=== PATIENT | female | born 1975 | race Caucasian/White ===

== ENCOUNTER 2019-05-11 16:16 | Outpatient (RCR) | payer BC, SELFPAY ==
[2019-04-13 18:22] VITALS: BP 122/70; PULSE 73
[2019-04-20 17:55] VITALS: BP 126/74; PULSE 69
[2019-05-11 17:26] VITALS: BP 129/81; PULSE 70
== END 2019-05-29 12:15 | disposition home or self-care (01) ==
LOC: ANHOBOP 16:16
PROVIDERS: Visit Provider Obstetrics & Gynecology
DX: O09.513 Supervision of elderly primigravida, third trimester (principal); O99.113 Other diseases of the blood and blood-forming organs and certain disorders involving the immune mechanism complicating pregnancy, third trimester; Z3A.32 32 weeks gestation of pregnancy
CPT/HCPCS: 59025

== ENCOUNTER 2019-05-22 18:04 | Observation (INO) | payer BC, SELFPAY ==
[2019-05-22 18:26] VITALS: BP 136/79; PULSE 68
[2019-05-22 18:30] VITALS: BP 141/78; PULSE 70
[2019-05-22 18:45] VITALS: BP 145/83; PULSE 68
[2019-05-22 18:52] VITALS: BMI 27.7
--- NOTE | 2019-05-22 18:53 | OBADM ---
This patient, Ronak Martinez, admitted to the OB room Labor/Delivery/Recovery 105 for observation. Patient/family oriented to hospital policies and general routines including ID bracelet, bed and alarms, visiting hours, pain management, procedures, bathroom and other care routines, personal items, smoking policy, room service/diet, and visiting hours. Patient/Family are encouraged to report perceived risks to care and to ask questions if they do not understand what they are told or what they should do.
[2019-05-22 18:56] LABS: Basophils Percent Auto 0.3 % (0.2-1.2); Eosinophils Absolute Auto 0.1 K/mm3 (0-0.3); Eosinophils Percent Auto 0.7 % (0-4.4); Hematocrit 34.8 % (37.0-47.0); Hemoglobin 11.4 g/dL (12.0-15.0); Immature Granulocyte Absolute 0.11 K/mm3 (0.00-0.031); Immature Granulocyte Percent A 1.2 % (0-0.5); Lymphocytes Absolute Auto 1.83 K/mm3 (0.9-3.2); Lymphocytes Percent Auto 20.4 % (18.3-44.2); Mean Corpuscular HGB Conc 32.8 g/dl (32-36); Mean Corpuscular Hemoglobin 30.2 pg (26-34); Mean Corpuscular Volume 92.1 fl (80-100); Mean Platelet Volume 10.2 fl (7.4-10.4); Monocytes Absolute Auto 0.7 K/mm3 (0.1-0.6); Monocytes Percent Auto 7.2 % (2.6-8.5); Neutrophils Absolute Auto 6.3 K/mm3 (1.3-6.7); Neutrophils Percent Auto 70.2 % (45.5-73.1); Platelet Count Result 144 k/mm3 (150-375); Red Blood Count 3.78 M/mm3 (4.2-5.4); Red Cell Distribution Width 14.5 % (11.5-14.5)
[2019-05-22 19:00] VITALS: BP 158/81; PULSE 95
[2019-05-22 19:02] LABS: Add Urine Microscopic? YES; Appearance Urine Cloudy (Clear); Bilirubin Urine Negative (Negative); Blood Urine Negative (Negative); Color Urine Straw (Yellow); Glucose Urine UA Negative (Negative); Ketones Urine 1+ mg/dL (Negative); Leukocyte Esterase Ur Negative LEU/UL (NEGATIVE); Mucus Urine Rare /lpf; Nitrate Urine Negative (Negative); Protein Urine Negative (Negative); RBC Urine 0-2 /hpf (0-2); Specific Grav Ur 1.008 (1.001-1.035); Squamous Epithelial Cell Urine Many /hpf (Few); Urobilinogen Urine Negative mg/dL (<2.0); WBC Urine 0-3 /hpf (0-3)
--- NOTE | 2019-05-22 19:02 | PC.NURSE ---
Patient here for PIH labs and rule out labor. Home meds confirmed and updated in chart.
[2019-05-22 19:06] LABS: Alanine Aminotransferase 21 U/L (4-35); Albumin Level 3.4 g/dL (3.5-5.1); Alkaline Phosphatase 88 U/L (38-126); Aspartate Amino Transferase 23 U/L (14-36); Bilirubin,Total 0.4 mg/dL (0.2-1.3); Blood Urea Nitrogen 4 mg/dL (7-17); Calcium 9.3 mg/dL (8.4-10.2); Carbon Dioxide 23 mmol/L (22-30); Chloride 100 mmol/L (98-107); Creatinine Urine 30.4 mg/dL; Estimated CRCL calculation 162 ml/min; Estimated Glomerular Filt Rate > 60; Glucose 140 mg/dL (65-105); Potassium 3.4 mmol/L (3.4-5.0); Sodium 131 mmol/L (137-145); Total Protein Urine Random 14 mg/dL; Uric Acid 4.8 mg/dL (2.5-7.5)
[2019-05-22 19:15] VITALS: BP 136/82; PULSE 69
--- NOTE | 2019-05-22 20:07 | PC.NURSE ---
Patient educated on signs to look for in regards to Pre-Eclampsia. Return to hospital if experiencing headaches, blurry vision, nausea, vomiting, upper right quadrant pain. Patient educated on 24 hour urine complete and returning to hospital for repeat labs. Unit phone number given in case of questions. Patient verbalizes understanding to all education provided and denies any questions.
--- NOTE | 2019-06-12 19:53 | P.PNOB_ITS ---
OB - Triage/Final Diagnosis Evaluation Laboratory results: Laboratory Tests 05/22/19 05/22/19 05/22/19 18:48 18:48 18:48 WBC 9.0 RBC 3.78 L Hgb 11.4 L Hct 34.8 L MCV 92.1 MCH 30.2 MCHC 32.8 RDW 14.5 Plt Count 144 L MPV 10.2 Immature Gran % (Auto) 1.2 H Neut % (Auto) 70.2 Lymph % (Auto) 20.4 [place] % (Auto) 7.2 Eos % (Auto) 0.7 Baso % (Auto) 0.3 Lymph # (Auto) 1.83 [place] # (Auto) 0.7 H Eos # (Auto) 0.1 Baso # (Auto) 0.0 Abs Immat Gran (auto) 0.11 H Absolute Neuts (auto) 6.3 Absolute Nucleated RBC 0.0 Nucleated RBC % 0.0 Sodium Potassium Chloride Carbon Dioxide BUN Creatinine Estim Creat Clear Calc Estimated GFR Glucose Uric Acid Calcium Total Bilirubin AST ALT Alkaline Phosphatase Total Protein Albumin Urine Color Straw Urine Appearance Cloudy H Urine pH 7.0 Ur Specific [place] 1.008 Urine Protein Negative Urine Glucose (UA) Negative Urine Ketones 1+ H Ur Blood (Man) Negative Urine Nitrate Negative Urine Bilirubin Negative Urine Urobilinogen Negative Ur Leukocyte Esterase Negative Urine RBC 0-2 Urine WBC 0-3 Ur Squamous Epith Cells Many H Urine Mucus Rare U Random Total Protein 14 Urine Creatinine 30.4 05/22/19 18:48 WBC RBC Hgb Hct MCV MCH MCHC RDW Plt Count MPV Immature Gran % (Auto) Neut % (Auto) Lymph % (Auto) [place] % (Auto) Eos % (Auto) Baso % (Auto) Lymph # (Auto) [place] # (Auto) Eos # (Auto) Baso # (Auto) Abs Immat Gran (auto) Absolute Neuts (auto) Absolute Nucleated RBC Nucleated RBC % Sodium 131 L Potassium 3.4 Chloride 100 Carbon Dioxide 23 BUN 4 L Creatinine 0.40 L Estim Creat Clear Calc 162 Estimated GFR > 60 Glucose 140 H Uric Acid 4.8 Calcium 9.3 Total Bilirubin 0.4 AST 23 ALT 21 Alkaline Phosphatase 88 Total Protein 6.0 L Albumin 3.4 L Urine Color Urine Appearance Urine pH Ur Specific [place] Urine Protein Urine Glucose (UA) Urine Ketones Ur Blood (Man) Urine Nitrate Urine Bilirubin Urine Urobilinogen Ur Leukocyte Esterase Urine RBC Urine WBC Ur Squamous Epith Cells Urine Mucus U Random Total Protein Urine Creatinine Final Diagnosis (1) False labor: Code(s): O47.9 - False labor, unspecified Status: Acute
== END 2019-05-22 19:51 | disposition home or self-care (01) ==
PROVIDERS: Advanced Practice Midwife; Admitting Provider Obstetrics & Gynecology; Visit Provider Obstetrics & Gynecology
DX: O47.1 False labor at or after 37 completed weeks of gestation (principal); Z3A.37 37 weeks gestation of pregnancy
CPT/HCPCS: 36415; 80053; 81001; 82570; 84156; 84550; 85025; 87086; G0378; G0379

== ENCOUNTER 2019-05-23 06:30 | Outpatient (CLI) | payer BC, SELFPAY ==
[2019-05-23 06:54] LABS: Hematocrit 32.6 % (37.0-47.0); Hemoglobin 10.9 g/dL (12.0-15.0); Mean Corpuscular HGB Conc 33.4 g/dl (32-36); Mean Corpuscular Hemoglobin 30.6 pg (26-34); Mean Corpuscular Volume 91.6 fl (80-100); Platelet Count Result 133 k/mm3 (150-375); Red Blood Count 3.56 M/mm3 (4.2-5.4); Red Cell Distribution Width 14.3 % (11.5-14.5); White Blood Count 7.5 K/mm3 (4.5-10.0)
[2019-05-23 07:12] LABS: Alanine Aminotransferase 19 U/L (4-35); Albumin Level 3.1 g/dL (3.5-5.1); Alkaline Phosphatase 78 U/L (38-126); Aspartate Amino Transferase 20 U/L (14-36); Bilirubin,Total 0.3 mg/dL (0.2-1.3); Blood Urea Nitrogen 3 mg/dL (7-17); Calcium 8.9 mg/dL (8.4-10.2); Carbon Dioxide 24 mmol/L (22-30); Chloride 103 mmol/L (98-107); Estimated Glomerular Filt Rate > 60; Glucose 87 mg/dL (65-105); Potassium 3.6 mmol/L (3.4-5.0); Sodium 134 mmol/L (137-145)
[2019-05-23 07:17] LABS: Uric Acid 4.8 mg/dL (2.5-7.5)
== END 2019-05-23 06:31 | disposition home or self-care (01) ==
LOC: ANHOBOP 06:34
PROVIDERS: Visit Provider Obstetrics & Gynecology
DX: O13.9 Gestational [pregnancy-induced] hypertension without significant proteinuria, unspecified trimester (principal); Z3A.00 Weeks of gestation of pregnancy not specified
CPT/HCPCS: 36415; 80053; 84550; 85027

== ENCOUNTER 2019-05-26 06:40 | Inpatient (IN) | payer BC, SELFPAY ==
[2019-05-26] VITALS (182 sets, daily range): BP systolic 106–159; BP diastolic 58–100; PULSE 65–113; RESP 18–20; TEMP 36.5–37.5; O2SAT 95–100; BMI 27.6
--- NOTE | ~2019-05-26 | US_ITS ---
EXAMINATION: US pelvic limited DATE: 05/27/2019 04:22 INDICATION: hemorrhage. TECHNIQUE: Multiple transabdominal and transvaginal sonographic images of the pelvis were obtained. COMPARISON: None. FINDINGS: TRANSABDOMINAL ULTRASOUND: The uterus is enlarged and heterogeneous, consistent with state. The endometrial complex m easures 7 mm, which is normal. IMPRESSION: 1. No evidence of retained products of conception. Reviewed, dictated and finalized at location A. BASE TESTER
[2019-05-26 07:22] LABS: Basophils Percent Auto 0.4 % (0.2-1.2); Eosinophils Absolute Auto 0.1 K/mm3 (0-0.3); Eosinophils Percent Auto 1.1 % (0-4.4); Hematocrit 34.1 % (37.0-47.0); Hemoglobin 11.3 g/dL (12.0-15.0); Immature Granulocyte Absolute 0.15 K/mm3 (0.00-0.031); Immature Granulocyte Percent A 1.9 % (0-0.5); Lymphocytes Absolute Auto 1.82 K/mm3 (0.9-3.2); Lymphocytes Percent Auto 22.7 % (18.3-44.2); Mean Corpuscular HGB Conc 33.1 g/dl (32-36); Mean Corpuscular Hemoglobin 30.3 pg (26-34); Mean Corpuscular Volume 91.4 fl (80-100); Mean Platelet Volume 10.5 fl (7.4-10.4); Monocytes Absolute Auto 0.8 K/mm3 (0.1-0.6); Monocytes Percent Auto 9.6 % (2.6-8.5); Neutrophils Absolute Auto 5.2 K/mm3 (1.3-6.7); Neutrophils Percent Auto 64.3 % (45.5-73.1); Platelet Count Result 126 k/mm3 (150-375); Red Blood Count 3.73 M/mm3 (4.2-5.4); Red Cell Distribution Width 14.2 % (11.5-14.5)
[2019-05-26 07:35] LABS: Alanine Aminotransferase 17 U/L (4-35); Albumin Level 3.2 g/dL (3.5-5.1); Alkaline Phosphatase 85 U/L (38-126); Aspartate Amino Transferase 21 U/L (14-36); Bilirubin,Total 0.2 mg/dL (0.2-1.3); Blood Urea Nitrogen 4 mg/dL (7-17); Calcium 8.7 mg/dL (8.4-10.2); Carbon Dioxide 23 mmol/L (22-30); Chloride 102 mmol/L (98-107); Estimated Glomerular Filt Rate > 60; Glucose 100 mg/dL (65-105); Potassium 3.7 mmol/L (3.4-5.0); Sodium 133 mmol/L (137-145); Uric Acid 4.5 mg/dL (2.5-7.5)
--- NOTE | 2019-05-26 07:37 | PM.IMHP ---
H&P: HPI History of Present Illness Chief complaint: induction of labor Narrative: Ronak Martinez is a 43 year old female 4 para 3003 at 38 weeks gestation. She has a history of C section and 1 . She is 3 term deliveries. She has no complaints today. She did have episodes of severely painful contractions about a week ago. She denies any loss of fluid, vaginal bleeding, contractions this morning. She denies any headache, blurry vision, epigastric pain. She denies any nausea, vomiting, fever, chills. She denies any chest pain or shortness of breath. She reports good movement. Review of Systems Constitutional: Constitutional: Reports no additional constitutional complaints, Denies fatigue, Denies headache(s), Denies lethargy and Denies weakness Eyes: Eyes: Reports no additional eye complaints, Denies blurry vision and Denies photophobia ENT: Reports as per HPI, Denies headache(s) and Denies neck pain Cardiovascular: Cardiovascular: Denies chest pain, Denies diaphoresis, Denies leg edema, Denies palpitations and Denies dyspnea Respiratory: Respiratory: Denies hemoptysis, Denies dyspnea and Denies wheezing Gastrointestinal: Gastrointestinal: Denies abdominal pain, Denies melena, Denies bloating, Denies hematochezia, Denies nausea and Denies vomiting Genitourinary: Genitourinary: Reports no additional female genitourinary complaints Musculoskeletal: Musculoskeletal: Denies joint swelling, Denies neck pain, Denies numbness and Denies stiffness Neurologic: Denies Abnormal speech present, Denies confusion, Denies headache(s), Denies numbness and Denies weakness Psychiatric: Psychiatric: Denies anxiety, Denies confusion, Denies depression, Denies homicidal ideation and Denies suicidal ideation Endocrine: Endocrine: Denies fatigue and Denies palpitations Allergic/Immunologic: Allergic/Immunologic: Denies wheezing [facility] Family History Family History (Updated 05/20/19 @ 13:41 by Jet Hurley RN) Other Factor V Leiden Social History Social History Substance use: never Gender identity (if verbalized by the patient): Female Spiritual care concerns: No Meds Home Medications and Allergies Home Medications Medication Instructions Recorded Confirmed Type Zyrtec 10 mg PO DAILY 03/01/19 03/01/19 History albuterol sulfate 1 inh INHALATION QID PRN 03/01/19 03/01/19 History aspirin [Aspir-81] 81 mg PO DAILY 03/01/19 03/01/19 History heparin (porcine) 05/22/19 History Allergies Allergy/AdvReac Type Severity Reaction Status Date / Time latex Allergy Intermediate rash Verified 01/14/18 03:20 Vital Signs Vital Signs - 24 hr 05/26/19 07:14 05/26/19 07:30 Pulse Rate 91 87 Blood Pressure 136/86 140/84 Exam Const: General: healthy appearing, comfortable and no acute distress; No confusion Orientation/consciousness: No confusion Eyes: Direct Ophthalmoscopy: No photophobia Resp: Auscultation: clear to auscultation bilaterally, no rales, no rhonchi and no wheezes Cardio: Rate: regular rate Heart sounds: no click, no murmurs and no rubs GI: Inspection: non-distended GI Palp: No abdominal tenderness Auscultation: normal bowel sounds Neuro: General: No confusion Speech: No Abnormal speech present Extrem: General: normal to inspection, no pedal edema and no calf tenderness H&P: Results Labs Labs: Short CBC 05/26/19 Range/Units 07:14 WBC 8.0 (4.5-10.0) K/mm3 Hgb 11.3 L (12.0-15.0) g/dL Hct 34.1 L (37.0-47.0) % Plt Count 126 L (150-375) k/mm3 BMP 05/26/19 07:14 Sodium 133 L Potassium 3.7 Chloride 102 Carbon Dioxide 23 BUN 4 L Creatinine 0.40 L Glucose 100 Calcium 8.7 Liver Function 05/26/19 Range/Units 07:14 Total Bilirubin 0.2 (0.2-1.3) mg/dL AST 21 (14-36) U/L ALT 17 (4-35) U/L Alkaline Phosphatase 85 (38-126) U/L Albumin 3.2 L (3.5-5.1) g/dL Assessment and Plan Assessment and plan (1) Te
[2019-05-26] MEDS: LACTATED RINGERS 1,000 ML 125 ML IV CONT ×3 (10:05→17:44)
[2019-05-26 10:48] LABS: Rapid Plasma Reagin Non-Reactive (NonReactive)
--- NOTE | 2019-05-26 10:55 | WPDANESEPPF ---
Anes - Initial Pre Proc Eval Date/Time: 05/26/19 10:55 Surgeon: Raffy Molina MD Pre Op Diagnosis: induction of labor Patient Data Age: 43 Gender: F Height: 5 ft 10 in Weight: 87.5 kg Last Vital Signs Temp 36.9 C 05/26/19 09:20 Pulse 78 05/26/19 10:51 BP 130/73 05/26/19 10:51 Pulse Ox 97 05/26/19 10:55 Allergies Allergy/AdvReac Type Severity Reaction Status Date / Time latex Allergy Intermediate rash Verified 01/14/18 03:20 Home Medications Medication Instructions Recorded Confirmed Type Zyrtec 10 mg PO DAILY 03/01/19 05/26/19 History albuterol sulfate 1 inh INHALATION QID PRN 03/01/19 05/26/19 History aspirin [Aspir-81] 81 mg PO DAILY 03/01/19 05/26/19 History heparin (porcine) 10,000 unit SUBCUT BID 05/22/19 05/26/19 History Laboratory Tests 05/26/19 05/26/19 05/26/19 07:14 07:14 07:14 WBC 8.0 K/mm3 K/mm3 (4.5-10.0) RBC 3.73 M/mm3 L M/mm3 (4.2-5.4) Hgb 11.3 g/dL L g/dL (12.0-15.0) Hct 34.1 % L % (37.0-47.0) MCV 91.4 fl fl (80-100) MCH 30.3 pg pg (26-34) MCHC 33.1 g/dl g/dl (32-36) RDW 14.2 % % (11.5-14.5) Plt Count 126 k/mm3 L k/mm3 (150-375) MPV 10.5 fl H fl (7.4-10.4) Immature Gran % (Auto) 1.9 % H % (0-0.5) Neut % (Auto) 64.3 % % (45.5-73.1) Lymph % (Auto) 22.7 % % (18.3-44.2) [place] % (Auto) 9.6 % H % (2.6-8.5) Eos % (Auto) 1.1 % % (0-4.4) Baso % (Auto) 0.4 % % (0.2-1.2) Lymph # (Auto) 1.82 K/mm3 K/mm3 (0.9-3.2) [place] # (Auto) 0.8 K/mm3 H K/mm3 (0.1-0.6) Eos # (Auto) 0.1 K/mm3 K/mm3 (0-0.3) Baso # (Auto) 0.0 K/mm3 K/mm3 (0.0-0.1) Abs Immat Gran (auto) 0.15 K/mm3 H K/mm3 (0.00-0.031) Absolute Neuts (auto) 5.2 K/mm3 K/mm3 (1.3-6.7) Absolute Nucleated RBC 0.0 K/mm3 K/mm3 (0.0-0.012) Nucleated RBC % 0.0 % % (0.0-0.2) Sodium Potassium Chloride Carbon Dioxide BUN Creatinine Estim Creat Clear Calc Estimated GFR Glucose Uric Acid Calcium Total Bilirubin AST ALT Alkaline Phosphatase Total Protein Albumin RPR Non-reactive (NonReactive) Blood Type A Positive Antibody Screen Negative 05/26/19 07:14 WBC RBC Hgb Hct MCV MCH MCHC RDW Plt Count MPV Immature Gran % (Auto) Neut % (Auto) Lymph % (Auto) [place] % (Auto) Eos % (Auto) Baso % (Auto) Lymph # (Auto) [place] # (Auto) Eos # (Auto) Baso # (Auto) Abs Immat Gran (auto) Absolute Neuts (auto) Absolute Nucleated RBC Nucleated RBC % Sodium 133 mmol/L L mmol/L (137-145) Potassium 3.7 mmol/L mmol/L (3.4-5.0) Chloride 102 mmol/L mmol/L (98-107) Carbon Dioxide 23 mmol/L mmol/L (22-30) BUN 4 mg/dL L mg/dL (7-17) Creatinine 0.40 mg/dL L mg/dL (0.7-1.0) Estim Creat Clear Calc Not Reportable Estimated GFR > 60 (59 - ) Glucose 100 mg/dL mg/dL (65-105) Uric Acid 4.5 mg/dL mg/dL (2.5-7.5) Calcium 8.7 mg/dL mg/dL (8.4-10.2) Total Bilirubin 0.2 mg/dL mg/dL (0.2-1.3) AST 21 U/L U/L (14-36) ALT 17 U/L U/L (4-35) Alkaline Phosphatase 85 U/L U/L (38-126) Total Protein 6.0 g/dL L g/dL (6.3-8.2) Albumin 3.2 g/dL L g/dL (3.5-5.1) RPR Blood Type Antibody Screen Patient hx anesthesia problems: none Family hx anesthesia problems: none PMFSH Past Medical History Medical History Asthma Family History Fa
--- NOTE | 2019-05-26 18:07 | PM.OBPNVD ---
OB - PN: Subj Subjective Date/time seen: 05/26/19 18:07 Patient comments: no complaints and pain well controlled Narrative: She has epidural, she is lilly regularly. She has reassuring status. OB - PN: Obj Data Labs CBC & Chem 7: 05/26/19 07:14 05/26/19 07:14 Labs: Laboratory Results - last 24 hr 05/26/19 05/26/19 05/26/19 07:14 07:14 07:14 WBC 8.0 RBC 3.73 L Hgb 11.3 L Hct 34.1 L MCV 91.4 MCH 30.3 MCHC 33.1 RDW 14.2 Plt Count 126 L MPV 10.5 H Immature Gran % (Auto) 1.9 H Neut % (Auto) 64.3 Lymph % (Auto) 22.7 [place] % (Auto) 9.6 H Eos % (Auto) 1.1 Baso % (Auto) 0.4 Lymph # (Auto) 1.82 [place] # (Auto) 0.8 H Eos # (Auto) 0.1 Baso # (Auto) 0.0 Abs Immat Gran (auto) 0.15 H Absolute Neuts (auto) 5.2 Absolute Nucleated RBC 0.0 Nucleated RBC % 0.0 Sodium Potassium Chloride Carbon Dioxide BUN Creatinine Estim Creat Clear Calc Estimated GFR Glucose Uric Acid Calcium Total Bilirubin AST ALT Alkaline Phosphatase Total Protein Albumin RPR Non-reactive Blood Type A Positive Antibody Screen Negative 05/26/19 07:14 WBC RBC Hgb Hct MCV MCH MCHC RDW Plt Count MPV Immature Gran % (Auto) Neut % (Auto) Lymph % (Auto) [place] % (Auto) Eos % (Auto) Baso % (Auto) Lymph # (Auto) [place] # (Auto) Eos # (Auto) Baso # (Auto) Abs Immat Gran (auto) Absolute Neuts (auto) Absolute Nucleated RBC Nucleated RBC % Sodium 133 L Potassium 3.7 Chloride 102 Carbon Dioxide 23 BUN 4 L Creatinine 0.40 L Estim Creat Clear Calc Not Reportable Estimated GFR > 60 Glucose 100 Uric Acid 4.5 Calcium 8.7 Total Bilirubin 0.2 AST 21 ALT 17 Alkaline Phosphatase 85 Total Protein 6.0 L Albumin 3.2 L RPR Blood Type Antibody Screen OB - PN A/P Assessment and Plan (1) History of pre-eclampsia: Code(s): Z87.59 - Personal history of other complications of , childbirth and the puerperium Status: Acute (2) Gestational hypertension: Code(s): O13.9 - Gestational [-induced] hypertension without significant proteinuria, unspecified trimester Status: Acute (3) Factor 5 Leiden mutation, heterozygous: Code(s): D68.51 - Activated protein C resistance Status: Acute (4) Hx successful (vaginal after ), currently : Code(s): O34.219 - Maternal care for unspecified type scar from previous delivery Status: Acute (5) Previous delivery, antepartum condition or complication: Code(s): O34.219 - Maternal care for unspecified type scar from previous delivery Status: Acute (6) Term : Code(s): Z34.90 - Encounter for supervision of normal , unspecified, unspecified trimester Status: Acute Assessment and Plan: Patient is a 43-year-old multiparous female with a history of prior delivery and a vaginal after . She is in active labor. She has reassuring status. Artificial rupture membranes was performed earlier today. She has a good contraction pattern with adequate force. She has an IUPC. Time Spent With Patient Time: Total time spent is greater than 50% in coordination of care (as documented) at patient's floor/unit and/or counseling patient: Exam Const: General: comfortable, no acute distress and alert Resp: Effort & Inspection: normal respiratory effort Auscultation: no crackles, no rales and no rhonchi Cardio: Rate: regular rate Heart sounds: no click, no murmurs and no rubs GI: Inspection: non-distended GI Palp: No Tenderness to palpation present (GI) Auscultation: normal bowel sounds Other: Incision - CDI Extrem: General: normal to inspection, no pedal edema and no calf tenderness
--- NOTE | 2019-05-26 18:27 | LDADM ---
This patient, Ronak Martinez, was admitted to Labor/Delivery/Recovery 105 on 05/26/19 at 06:40. Plans for labor, pain management and were discussed with patient. Patient/family oriented to hospital policies and general routines including ID bracelet, bed and alarms, visiting hours, pain management, procedures, bathroom and other care routines, personal items, smoking policy, room service/diet and guest tray routines, security routines, and visiting hours. Patient/Family are encouraged to report perceived risks to care and to ask questions if they do not understand what they are told or what they should do. See OBIX for further documentation.
--- NOTE | 2019-05-26 18:47 | PC.NURSE ---
All charting in [facility] on this patient on 05/26/2019 from [id number] was input by Klaus JONES not Nilton JONES.
--- NOTE | 2019-05-26 20:38 | PM.OBPRVD ---
OB - Delivery Note Procedure Delivery date: 05/26/19 Procedure: events: Previous , Induced HTN and Labor Induction Intrapartal events: None Induction method: AROM Delivery augmentation: pitocin Delivery monitor: external FHT Route of delivery: Laceration description: Perineal - 2nd Degree Delivery repair: vicryl (2-0) Specimen: Yes Estimated blood loss (mL): 315 Anesthesia type: Epidural Disposition: floor Baby Date of : 05/26/19 Time of : 20:20 Weeks of gestation at delivery: 37 Infant gender: Male Weight (pounds): 7 Weight (ounces): 13 presentation: vertex position: Right Occiput Anterior Placenta delivery description: Spontaneous cord vessel description: 3 Vessels score one minute: 8 score five minutes: 9
[2019-05-26] MEDS: CARBOPROST TROMETHAMINE 250 MCG/ML AMPUL (20:45)
[2019-05-26] MEDS: ONDANSETRON INJ 4 MG/2 ML VIAL IV PUSH (21:56)
[2019-05-26] MEDS: WITCH HAZEL 40 PADS 1 PAD TOPICAL (22:11)
[2019-05-26] MEDS: BENZOCAINE 20% AER SPR (*SP) 56 GM CAN 1 SPRAY TOPICAL (22:12)
--- NOTE | 2019-05-26 22:45 | PC.NURSE ---
Unable to give accurate recovery QBL due to pt having loose stools (after hemabate) blood and stool mixing.
[2019-05-26] MEDS: IBUPROFEN 600 MG TABLET PO (23:04)
--- NOTE | 2019-05-27 00:29 | OBPPTRN ---
Patient transferred to post room #282 via wheelchair with baby in bassinet. Support person present. Oriented to unit, room, information board, rooming in, admission packet and security measures. Patient verbalizes understanding.
[2019-05-27] MEDS: CARBOPROST TROMETHAMINE 250 MCG/ML AMPUL IM (00:40)
[2019-05-27 00:50] VITALS: BP 130/78; PULSE 74; O2SAT 98
[2019-05-27] MEDS: ONDANSETRON INJ 4 MG/2 ML VIAL IV PUSH (00:56)
[2019-05-27] MEDS: MISOPROSTOL 200 MCG TABLET 1000 MCG RECTAL (02:23)
[2019-05-27] MEDS: SODIUM CHLORIDE 0.9% IV 1,000 ML 999 ML IV CONT (02:25)
[2019-05-27 02:26] LABS: Hematocrit 32.2 % (37.0-47.0); Hemoglobin 10.8 g/dL (12.0-15.0); Mean Corpuscular HGB Conc 33.5 g/dl (32-36); Mean Corpuscular Hemoglobin 30.3 pg (26-34); Mean Corpuscular Volume 90.4 fl (80-100); Mean Platelet Volume 10.3 fl (7.4-10.4); Platelet Count Result 156 k/mm3 (150-375); Red Blood Count 3.56 M/mm3 (4.2-5.4); Red Cell Distribution Width 14.1 % (11.5-14.5); White Blood Count 22.4 K/mm3 (4.5-10.0)
--- NOTE | 2019-05-27 02:36 | WPDPN ---
Progress Note: A&P Assessment and Plan (1) hemorrhage, delivered: Code(s): O72.1 - Other immediate hemorrhage Status: Acute Assessment and Plan: Likely uterine atony, s/p two doses hemabate. 1000 mcg cytotec just given rectally. Pitocin currently running and bolus of normal saline. She consents to blood transfusion if needed, but hemoglobin currently mildly low at 10.8. Check ultrasound to look for retained products of conception. We discussed possible need for exam under anesthesia to look for further lacerations, possible D&C, and possible laparotomy/hysterectomy. She expressed understanding, and we'll observe bleeding and await U/S Review of Systems Review of Systems: All systems reviewed & are unremarkable except as noted in HPI and below Exam Const: General: no acute distress GI: GI Palp: Yes Soft to palpation and No Tenderness to palpation present (GI) Other: Fundus firm 4 cm above umbilicus : Speculum Exam - Vagina: vaginal bleeding Other: swollen and tender at perineum with stitches intact Neuro: Cognition (Neuro): normal cognition Extrem: General: no edema Psych: Mental Status: mental status grossly normal Objective Data Vital Signs Vital Signs: Vital Signs - 24 hr 05/26/19 07:14 05/26/19 07:30 05/26/19 08:00 Temperature Pulse Rate 91 87 82 Respiratory Rate Blood Pressure 136/86 140/84 140/84 Pulse Oximetry 05/26/19 08:30 05/26/19 09:00 05/26/19 09:20 Temperature 36.9 C Pulse Rate 74 73 Respiratory Rate Blood Pressure 139/87 142/86 H Pulse Oximetry 05/26/19 09:31 05/26/19 10:01 05/26/19 10:35 Temperature Pulse Rate 73 79 71 Respiratory Rate Blood Pressure 139/78 136/95 H 135/88 Pulse Oximetry 05/26/19 10:38 05/26/19 10:40 05/26/19 10:43 Temperature Pulse Rate 77 71 74 Respiratory Rate Blood Pressure 137/82 137/81 136/79 Pulse Oximetry 05/26/19 10:45 05/26/19 10:47 05/26/19 10:48 Temperature Pulse Rate 81 87 81 Respiratory Rate Blood Pressure 137/74 121/75 125/74 Pulse Oximetry 05/26/19 10:50 05/26/19 10:51 05/26/19 10:55 Temperature Pulse Rate 78 Respiratory Rate Blood Pressure 130/73 Pulse Oximetry 99 97 05/26/19 10:57 05/26/19 10:58 05/26/19 11:00 Temperature Pulse Rate 78 79 83 Respiratory Rate Blood Pressure 125/68 131/75 126/67 Pulse Oximetry 97 05/26/19 11:03 05/26/19 11:05 05/26/19 11:06 Temperature Pulse Rate 78 73 Respiratory Rate Blood Pressure 128/81 127/77 Pulse Oximetry 97 05/26/19 11:09 05/26/19 11:10 05/26/19 11:12 Temperature Pulse Rate 71 70 Respiratory Rate Blood Pressure 127/75 128/75 Pulse Oximetry 97 05/26/19 11:15 05/26/19 11:18 05/26/19 11:20 Temperature Pulse Rate 69 72 Respiratory Rate Blood Pressure 126/76 134/76 Pulse Oximetry 97 97 05/26/19 11:21 05/26/19 11:24 05/26/19 11:25 Temperature Pulse Rate 71 79 Respiratory Rate Blood Pressure 126/78 132/73 Pulse Oximetry 96 05/26/19 11:27 05/26/19 11:30 05/26/19 11:33 Temperature Pulse Rate 79 78 73 Respiratory Rate Blood Pressure 130/76 130/72 128/71 Pulse Oximetry 98 05/26/19 11:35 05/26/19 11:36 05/26/19 11:39 Temperature Pulse Rate 81 84 Respiratory Rate Blood Pressure 125/79 127/71 Pulse Oximetry 99 05/26/19 11:40 05/26/19 11:45 05/26/19 11:50 Temperature Pulse Rate 75 Respiratory Rate Blood Pressure 133/74 Pulse Oximetry 98 99 98 05/26/19 11:55 05/26/19 12:00 05/26/19 12:05 Temperature Pulse Rate 72 Respiratory Rate Blood Pressure 130/73 Pulse Oximetry 99 100 100 05/26/19 12:10 05/26/19 12:15 05/26/19 12:20 Temperature Pulse Rate 65 Respiratory Rate Blood Pressure 134/87 Pulse Oximetry 100 100 100 05/26/19 12:25 05/26/19 12:30 05/26/19 12:35 Temperature 36.5 C Pulse Rate 73 Respiratory Rat
[2019-05-27 02:37] LABS: INR 0.9; Prothrombin Time 11.6 Seconds (11.1-14.7)
[2019-05-27] MEDS: SODIUM CHLORIDE 0.9% IV 1,000 ML 125 ML IV CONT (03:32)
[2019-05-27 03:49] LABS: Fibrinogen 257 mg/dl (215-510)
--- NOTE | 2019-05-27 04:02 | WPDPN ---
Progress Note: A&P Assessment and Plan (1) hemorrhage, delivered: Code(s): O72.1 - Other immediate hemorrhage Status: Acute Assessment and Plan: Ultrasound (preliminary) negative for retained placenta / tissue. Bleeding has slowed. Continue pitocin and fluid replacement and observe. Coags all normal including fibrinogen. Repeat CBC this am. Exam Const: General: no acute distress GI: GI Palp: Yes Soft to palpation and No Tenderness to palpation present (GI) : Speculum Exam - Vagina: vaginal bleeding Other: Uterus firm 2-3 cm above umbilicus. 1 cm above umbilicus after aggressive massage and evacuation of clots from vagina. No bleeding from perineum Psych: Mental Status: mental status grossly normal Objective Data Vital Signs Vital Signs: Vital Signs - 24 hr 05/26/19 07:14 05/26/19 07:30 05/26/19 08:00 Temperature Pulse Rate 91 87 82 Respiratory Rate Blood Pressure 136/86 140/84 140/84 Pulse Oximetry 05/26/19 08:30 05/26/19 09:00 05/26/19 09:20 Temperature 36.9 C Pulse Rate 74 73 Respiratory Rate Blood Pressure 139/87 142/86 H Pulse Oximetry 05/26/19 09:31 05/26/19 10:01 05/26/19 10:35 Temperature Pulse Rate 73 79 71 Respiratory Rate Blood Pressure 139/78 136/95 H 135/88 Pulse Oximetry 99 05/26/19 10:38 05/26/19 10:40 05/26/19 10:43 Temperature Pulse Rate 77 71 74 Respiratory Rate Blood Pressure 137/82 137/81 136/79 Pulse Oximetry 99 05/26/19 10:45 05/26/19 10:47 05/26/19 10:48 Temperature Pulse Rate 81 87 81 Respiratory Rate Blood Pressure 137/74 121/75 125/74 Pulse Oximetry 99 05/26/19 10:50 05/26/19 10:51 05/26/19 10:55 Temperature Pulse Rate 78 Respiratory Rate Blood Pressure 130/73 Pulse Oximetry 99 97 05/26/19 10:57 05/26/19 10:58 05/26/19 11:00 Temperature Pulse Rate 78 79 83 Respiratory Rate Blood Pressure 125/68 131/75 126/67 Pulse Oximetry 97 05/26/19 11:03 05/26/19 11:05 05/26/19 11:06 Temperature Pulse Rate 78 73 Respiratory Rate Blood Pressure 128/81 127/77 Pulse Oximetry 97 05/26/19 11:09 05/26/19 11:10 05/26/19 11:12 Temperature Pulse Rate 71 70 Respiratory Rate Blood Pressure 127/75 128/75 Pulse Oximetry 97 05/26/19 11:15 05/26/19 11:18 05/26/19 11:20 Temperature Pulse Rate 69 72 Respiratory Rate Blood Pressure 126/76 134/76 Pulse Oximetry 97 97 05/26/19 11:21 05/26/19 11:24 05/26/19 11:25 Temperature Pulse Rate 71 79 Respiratory Rate Blood Pressure 126/78 132/73 Pulse Oximetry 96 05/26/19 11:27 05/26/19 11:30 05/26/19 11:33 Temperature Pulse Rate 79 78 73 Respiratory Rate Blood Pressure 130/76 130/72 128/71 Pulse Oximetry 98 05/26/19 11:35 05/26/19 11:36 05/26/19 11:39 Temperature Pulse Rate 81 84 Respiratory Rate Blood Pressure 125/79 127/71 Pulse Oximetry 99 05/26/19 11:40 05/26/19 11:45 05/26/19 11:50 Temperature Pulse Rate 75 Respiratory Rate Blood Pressure 133/74 Pulse Oximetry 98 99 98 05/26/19 11:55 05/26/19 12:00 05/26/19 12:05 Temperature Pulse Rate 72 Respiratory Rate Blood Pressure 130/73 Pulse Oximetry 99 100 100 05/26/19 12:10 05/26/19 12:15 05/26/19 12:20 Temperature Pulse Rate 65 Respiratory Rate Blood Pressure 134/87 Pulse Oximetry 100 100 100 05/26/19 12:25 05/26/19 12:30 05/26/19 12:35 Temperature 36.5 C Pulse Rate 73 Respiratory Rate Blood Pressure 132/75 Pulse Oximetry 99 100 100 05/26/19 12:40 05/26/19 12:45 05/26/19 12:50 Temperature Pulse Rate 76 Respiratory Rate Blood Pressure 119/70 Pulse Oximetry 100 100 100 05/26/19 12:55 05/26/19 13:00 05/26/19 13:05 Temperature Pulse Rate 79 Respiratory Rate Blood Pressure 131/100 H Pulse Oximetry 100 100 99 05/26/19 13:10 05/26/19 13:15 05/26/19 13:20 Marc
[2019-05-27] MEDS: KETOROLAC 30 MG/ML VIAL (*BKC) IV PUSH (04:19)
[2019-05-27 07:21] LABS: Hemoglobin 9.2 g/dL (12.0-15.0)
[2019-05-27] MEDS: ACETAMINOPHEN 325 MG TABLET 650 MG PO (07:23)
[2019-05-27 08:00] VITALS: BP 116/55; PULSE 77; RESP 16; TEMP 36.9; O2SAT 100
[2019-05-27] MEDS: MULTIVIT/MIN/PREN/FOL AC/IRON TABLET 1 TAB PO (09:36)
[2019-05-27] MEDS: POLYSACCHARIDE IRON COMPLEX 150 MG CAPSULE PO (09:36)
[2019-05-27] MEDS: IBUPROFEN 600 MG TABLET PO ×3 (11:37→23:53)
--- NOTE | 2019-05-27 12:13 | PM.OBPNVD ---
OB - PN: Subj Subjective Date/time seen: 05/27/19 12:13 Patient comments: no complaints and other (Lochia similar to menses); no pain well controlled baby status: doing well Narrative: She denies CP, SOB, dizziness. Pain is more than she'd like, taking Tylenol and ibuprofen. Bleeding is minimal. [place] in place OB - PN: Obj Data Labs CBC & Chem 7: 05/27/19 07:06 05/26/19 07:14 Labs: Laboratory Results - last 24 hr 05/27/19 05/27/19 05/27/19 02:17 02:17 07:06 WBC 22.4 H RBC 3.56 L Hgb 10.8 L 9.2 L Hct 32.2 L 27.0 L MCV 90.4 MCH 30.3 MCHC 33.5 RDW 14.1 Plt Count 156 MPV 10.3 PT 11.6 INR 0.9 APTT 25.0 Fibrinogen 257 Imaging Radiologist's impression: Impressions Pelvis Ultrasound 05/27/19 08:52 IMPRESSION: 1. No evidence of retained products of conception. OB - PN A/P Assessment and Plan (1) hemorrhage, delivered: Code(s): O72.1 - Other immediate hemorrhage Status: Acute Assessment and Plan: Stable now, mildly anemic. Keep [place] in place until this evening. Heplock IV since tolerating po diet / liquids. Observe for signs / sx anemia and observe bleeding Plan day: 1 (s/p vaginal delivery, doing well) Plan: routine care Time Spent With Patient Time: Total time spent is greater than 50% in coordination of care (as documented) at patient's floor/unit and/or counseling patient: Exam Const: General: no acute distress GI: Inspection: other (Fundus firm and nontender at umbilicus) GI Palp: Yes Soft to palpation and No Tenderness to palpation present (GI) Extrem: General: no edema
[2019-05-27 15:10] VITALS: BP 127/78; PULSE 80; RESP 18; TEMP 37.1; O2SAT 100
[2019-05-27 18:54] VITALS: BP 132/82; PULSE 88; RESP 18; TEMP 37.2; O2SAT 97
[2019-05-27 23:55] VITALS: BP 141/86; PULSE 83; RESP 18; TEMP 36.9; O2SAT 97
[2019-05-28 05:00] VITALS: BP 139/80; PULSE 92; RESP 16; TEMP 37.6; O2SAT 98
[2019-05-28] MEDS: IBUPROFEN 600 MG TABLET PO (05:37)
[2019-05-28 08:45] VITALS: BP 133/88; PULSE 92; RESP 18; TEMP 37; O2SAT 99
[2019-05-28] MEDS: MULTIVIT/MIN/PREN/FOL AC/IRON TABLET 1 TAB PO (08:55)
--- NOTE | 2019-05-28 10:15 | PM.OBPNVD ---
OB - PN: Subj Subjective Date/time seen: 05/28/19 10:15 Patient comments: no complaints, pain well controlled and other (Lochia similar to menses) [place] baby status: doing well Narrative: No CP, SOB, dizziness. Pain well controlled. Occ. AYOUB resolves with Tylenol. No visual changes OB - PN: Obj Data Labs CBC & Chem 7: 05/27/19 07:06 05/26/19 07:14 OB - PN A/P Assessment and Plan (1) Gestational hypertension: Code(s): O13.9 - Gestational [-induced] hypertension without significant proteinuria, unspecified trimester Status: Acute Assessment and Plan: no evidence of pre-E. Return to office in 1 week for BP check. Reviewed signs/sx of pre-E (2) Factor 5 Leiden mutation, heterozygous: Code(s): D68.51 - Activated protein C resistance Status: Acute Assessment and Plan: restart lovenox daily for 6 weeks Plan day: 2 (s/p vaginal delivery, doing well) Plan: routine care, discharge home and other (Follow up in office in 1 week) Time Spent With Patient Time: Total time spent is greater than 50% in coordination of care (as documented) at patient's floor/unit and/or counseling patient: Exam Const: General: no acute distress GI: Inspection: other (Fundus firm and nontender below umbilicus) GI Palp: Yes Soft to palpation and No Tenderness to palpation present (GI) Extrem: General: no edema
--- NOTE | 2019-05-28 10:17 | PM.OBDSVD ---
DS: Diagnosis Admitting Diagnosis Admitting Diagnosis: Encounter for supervision of normal , unspecified, unspecified trimester Discharge Diagnosis (1) hemorrhage, delivered: Code(s): O72.1 - Other immediate hemorrhage Status: Acute (2) Gestational hypertension: Code(s): O13.9 - Gestational [-induced] hypertension without significant proteinuria, unspecified trimester Status: Acute (3) Factor 5 Leiden mutation, heterozygous: Code(s): D68.51 - Activated protein C resistance Status: Acute OB - DS: Summary OB Procedures : PIH Mgmt OB Procedures Intrapartum: OB Procedures: : Other (hemorrhage) Peripartum Data Infant Delivery Method: Natural Vaginal () Laceration description: Perineal - 2nd Degree complications: uterine atony Status at Discharge Functional status at discharge: independent ambulation Overall status at discharge: patient is progressing back to baseline Time Spent with Patient Time attestation: Total time spent providing and/or coordinating discharge services: Time spent: Less than 30 minutes DS: Data Data Completed and Pending Pending studies at discharge: Pending at discharge 05/26/19 20:30 Surgical [PTH] Routine Discharge Plan Discharge Attending physician on discharge: Deja Monroy Discharging Clinician: Deja Monroy Patient Disposition: Home, Self-Care Activity: may shower and pelvic rest Diet: regular Patient Instructions: Antibiotic Form Stand Alone Forms: General Discharge Information Follow-up/Referrals: Deja Monroy MD [Physician] - 1 Week Discharge Medications: New ibuprofen 600 mg Tablet 600 mg PO Q6H PRN (Reason: Cramping) Qty: 60 RF: 0 Continued aspirin [Aspir-81] 81 mg Tablet,Delayed Release (Dr/Ec) 81 mg PO DAILY RF: 0 Zyrtec 10 mg Capsule 10 mg PO DAILY RF: 0 albuterol sulfate 90 mcg/actuation Hfa Aerosol Inhaler 1 inh INHALATION QID PRN (Reason: Shortness Of Breath) RF: 0 heparin (porcine) 10,000 unit/mL solution 10,000 unit subcut BID RF: 0 Date of admission: 05/26/19 06:40 Primary Care Provider: UNKNOWN,DOCTOR Admitting Provider: Raffy Molina Attending physician on admission: Raffy Molina
[2019-05-28] MEDS: ACETAMINOPHEN 325 MG TABLET 650 MG PO (11:19)
--- NOTE | 2019-05-28 12:00 | PC.NURSE ---
Patient viewed the discharge video Mother & Baby Care, The First Two Weeks . Patient was given the opportunity and encouraged to ask questions. Patient verbalized understanding of information shared and has been given the mother/baby guide for home reference.
[2019-05-29 09:58] VITALS: BP 120/69; PULSE 106; RESP 22; TEMP 36.9
== END 2019-05-28 14:10 | disposition home or self-care (01) | DRG 806 ==
LOC: ANHLDR 06:45 → ANHOB2 05-28 10:22 → ANHLDR 05-30 09:45 → ANHOB2 05-30 09:45
PROVIDERS: Admitting Provider Obstetrics & Gynecology; Visit Provider Obstetrics & Gynecology
DX: O34.211 Maternal care for low transverse scar from previous cesarean delivery (principal); O99.12 Other diseases of the blood and blood-forming organs and certain disorders involving the immune mechanism complicating childbirth; Z37.0 Single live birth; D68.51 Activated protein C resistance; O72.1 Other immediate postpartum hemorrhage; Z3A.38 38 weeks gestation of pregnancy; O13.4 Gestational [pregnancy-induced] hypertension without significant proteinuria, complicating childbirth; O77.0 Labor and delivery complicated by meconium in amniotic fluid; O70.1 Second degree perineal laceration during delivery
CPT/HCPCS: 36415; 76857; 80053; 84550; 85014; 85018; 85025; 85027; 85384; 85610; 85730; 86592; 86850; 86900; 86901; 88307; A9270; J1885; J2405; J2590; J2795; J7030; J7120

== ENCOUNTER 2019-05-29 09:41 | Observation (INO) | payer BC, SELFPAY ==
[2019-05-29] VITALS (11 sets, daily range): TEMP 36.8–40; BMI 27.8
--- NOTE | ~2019-05-29 | US_ITS ---
EXAMINATION: US pelvic complete DATE: 05/29/2019 17:43 INDICATION: Spotting fever. Evaluate for abscess. TECHNIQUE: Multiple transabdominal sonographic images of the pelvis were obtained. COMPARISON: 05/27/2019 FINDINGS: The uterus remains enlarged measuring 19.2 x 10.8 x 14.2 cm and heterogeneous consistent with recent state. The endometrial complex measures 9 mm in thickness. No endometrial fluid collection . There are prominent parametrial vessels and right gonadal vein likely reflecting physiologic respon se to . The right ovary measures 5.3 x 3.7 x 3.5 cm. The left ovary measures 3.4 x 2.5 x 2.7 cm. There is no free fluid or loculated abscess in the pelvis. IMPRESSION: 1. Normal enlarged uterus. No abscess or free intraperitoneal fluid in the visualized pelv is. Reviewed, dictated and finalized at location A. ER GAUGER IMPRESSION: 1. Normal enlarged uterus. No abscess or free intraperitoneal fluid in the visualized pelvis.
[2019-05-29] MEDS: AMPICILLIN 2 GM/NS 100 ML 2 GM/100 ML BAG IVPB ×3 (11:05→23:20)
[2019-05-29] MEDS: LACTATED RINGERS 1,000 ML 100 ML IV CONT ×2 (11:07→23:21)
[2019-05-29 11:37] LABS: Basophils Absolute Auto 0.1 K/mm3 (0.0-0.1); Basophils Percent Auto 0.3 % (0.2-1.2); Hemoglobin 8.3 g/dL (12.0-15.0); Immature Granulocyte Absolute 0.24 K/mm3 (0.00-0.031); Immature Granulocyte Percent A 1.6 % (0-0.5); Lymphocytes Absolute Auto 0.77 K/mm3 (0.9-3.2); Mean Corpuscular HGB Conc 33.2 g/dl (32-36); Mean Corpuscular Hemoglobin 30.7 pg (26-34); Mean Corpuscular Volume 92.6 fl (80-100); Monocytes Absolute Auto 0.7 K/mm3 (0.1-0.6); Monocytes Percent Auto 4.8 % (2.6-8.5); Neutrophils Absolute Auto 13.6 K/mm3 (1.3-6.7); Neutrophils Percent Auto 88.3 % (45.5-73.1); Platelet Count Result 153 k/mm3 (150-375); Red Cell Distribution Width 14.3 % (11.5-14.5); White Blood Count 15.4 K/mm3 (4.5-10.0)
[2019-05-29] MEDS: BENZOCAINE 20% AER SPR (*SP) 56 GM CAN 1 SPRAY (16:53)
[2019-05-29] MEDS: WITCH HAZEL 40 PADS 1 PAD (16:53)
--- NOTE | 2019-05-29 16:55 | PC.NURSE ---
Tylenol 1000mg given IVPB per Abby Kasper RN
--- NOTE | 2019-05-29 18:29 | PM.IMHP ---
H&P: HPI History of Present Illness Chief complaint: PP Fever Narrative: Ronak Martinez is a 43 year old female this patient is a 43-year-old female who presents with fever. She is 3 days from a vaginal . She had hemorrhage and there was some manual exploration done of the vagina and perhaps uterus. She has Factor 5 Leiden and was on Lovenox through the . She has a history of preeclampsia. She denies any headache, blurry vision, epigastric pain. She does report fever. She denies any chills, nausea, vomiting. Review of Systems Constitutional: Constitutional: Reports no additional constitutional complaints, Denies fatigue, Denies headache(s), Denies lethargy and Denies weakness Eyes: Eyes: Reports no additional eye complaints, Denies blurry vision and Denies photophobia ENT: Reports as per HPI, Denies headache(s) and Denies neck pain Cardiovascular: Cardiovascular: Denies chest pain, Denies diaphoresis, Denies leg edema, Denies palpitations and Denies dyspnea Respiratory: Respiratory: Denies hemoptysis, Denies dyspnea and Denies wheezing Gastrointestinal: Gastrointestinal: Denies abdominal pain, Denies melena, Denies bloating, Denies hematochezia, Denies nausea and Denies vomiting Genitourinary: Genitourinary: Reports no additional female genitourinary complaints Musculoskeletal: Musculoskeletal: Denies joint swelling, Denies neck pain, Denies numbness and Denies stiffness Neurologic: Denies Abnormal speech present, Denies confusion, Denies headache(s), Denies numbness and Denies weakness Psychiatric: Psychiatric: Denies anxiety, Denies confusion, Denies depression, Denies homicidal ideation and Denies suicidal ideation Endocrine: Endocrine: Denies fatigue and Denies palpitations Allergic/Immunologic: Allergic/Immunologic: Denies wheezing PMFSH Social History Social History Smoking status: Never smoker Second hand tobacco smoke exposure: No Substance use: never Gender identity (if verbalized by the patient): Female Spiritual care concerns: No Meds Home Medications and Allergies Home Medications Medication Instructions Recorded Confirmed Type Zyrtec 10 mg PO DAILY 03/01/19 05/26/19 History albuterol sulfate 1 inh INHALATION QID PRN 03/01/19 05/26/19 History aspirin [Aspir-81] 81 mg PO DAILY 03/01/19 05/26/19 History heparin (porcine) 10,000 unit SUBCUT BID 05/22/19 05/26/19 History ibuprofen 600 mg PO Q6H PRN #60 tablet 05/28/19 Rx Allergies Allergy/AdvReac Type Severity Reaction Status Date / Time latex Allergy Intermediate rash Verified 01/14/18 03:20 Vital Signs Vital Signs - 24 hr 05/29/19 10:00 05/29/19 11:40 05/29/19 12:45 Temperature 98.5 F 98.3 F 99.3 F 05/29/19 13:30 Temperature 98.8 F Exam Const: General: healthy appearing, comfortable and no acute distress; No confusion Orientation/consciousness: No confusion Eyes: Direct Ophthalmoscopy: No photophobia Resp: Auscultation: clear to auscultation bilaterally, no rales, no rhonchi and no wheezes Cardio: Rate: regular rate Heart sounds: no click, no murmurs and no rubs GI: Inspection: non-distended GI Palp: No abdominal tenderness Auscultation: normal bowel sounds : Bimanual exam- vagina & uterus: Uterine tenderness Neuro: General: No confusion Speech: No Abnormal speech present Extrem: General: normal to inspection, no pedal edema and no calf tenderness H&P: Results Labs Labs: Short CBC 05/29/19 Range/Units 10:48 WBC 15.4 H (4.5-10.0) K/mm3 Hgb 8.3 L (12.0-15.0) g/dL Hct 25.0 L (37.0-47.0) % Plt Count 153 (150-375) k/mm3 Assessment and Plan Assessment and plan (1) Endometritis: Code(s): N71.9 - Inflammatory disease of uterus, unspecified Status: Acute Assessment and Plan: Patient is a 43-year-old female who is 3 days from vaginal and postpar
[2019-05-29] MEDS: metroNIDAZOLE 500 MG/ISO 100ML 500 MG/100 ML BAG 100 MG IVPB (21:07)
[2019-05-30] VITALS (28 sets, daily range): BP systolic 125–144; BP diastolic 76–99; PULSE 88–106; RESP 18–20; TEMP 36.1–38.2; O2SAT 93–99
[2019-05-30] MEDS: AMPICILLIN 2 GM/NS 100 ML 2 GM/100 ML BAG IVPB ×3 (05:24→18:16)
[2019-05-30] MEDS: metroNIDAZOLE 500 MG/ISO 100ML 500 MG/100 ML BAG 100 MG IVPB ×2 (09:12→21:16)
[2019-05-30] MEDS: IBUPROFEN 600 MG TABLET PO (09:13)
[2019-05-30 09:37] LABS: Add Urine Microscopic? NO; Appearance Urine Clear (Clear); Bilirubin Urine Negative (Negative); Blood Urine Negative (Negative); Color Urine Straw (Yellow); Glucose Urine UA Negative (Negative); Ketones Urine Negative (Negative); Leukocyte Esterase Ur Negative LEU/UL (Negative); Nitrate Urine Negative (Negative); Protein Urine Negative (Negative); Specific Grav Ur 1.008 (1.001-1.035); Urobilinogen Urine Negative mg/dL (<2.0)
[2019-05-30 10:32] LABS: Basophils Percent Auto 0.3 % (0.2-1.2); Eosinophils Percent Auto 0.5 % (0-4.4); Hematocrit 25.8 % (37.0-47.0); Hemoglobin 8.1 g/dL (12.0-15.0); Immature Granulocyte Absolute 0.37 K/mm3 (0.00-0.031); Immature Granulocyte Percent A 4.2 % (0-0.5); Lymphocytes Absolute Auto 1.22 K/mm3 (0.9-3.2); Mean Corpuscular HGB Conc 31.4 g/dl (32-36); Mean Corpuscular Hemoglobin 29.9 pg (26-34); Mean Corpuscular Volume 95.2 fl (80-100); Mean Platelet Volume 9.3 fl (7.4-10.4); Monocytes Absolute Auto 0.8 K/mm3 (0.1-0.6); Monocytes Percent Auto 9.2 % (2.6-8.5); Neutrophils Absolute Auto 6.3 K/mm3 (1.3-6.7); Neutrophils Percent Auto 71.8 % (45.5-73.1); Platelet Count Result 195 k/mm3 (150-375); Red Blood Count 2.71 M/mm3 (4.2-5.4); Red Cell Distribution Width 14.2 % (11.5-14.5); White Blood Count 8.7 K/mm3 (4.5-10.0)
[2019-05-30 10:50] LABS: Estimated CRCL calculation 113 ml/min; Estimated Glomerular Filt Rate > 60
[2019-05-30 11:22] LABS: Gentamicin Trough 0.9 ug/mL (<1.0)
[2019-05-30] MEDS: ENOXAPARIN 40 MG/0.4 ML SYRINGE SUB-Q (12:43)
[2019-05-30 14:00] LABS: Gentamicin Peak 2.7 ug/mL (5.0-12.0)
[2019-05-30] MEDS: LACTATED RINGERS 1,000 ML 100 ML IV CONT (14:01)
--- NOTE | 2019-05-30 19:11 | PM.OBPNVD ---
OB - PN: Subj Subjective Date/time seen: 05/30/19 19:11Patient feels considerably better, she has had no appreciable fever, her bleeding is minimal. She is tolerating p.o. and pumping breast milk. She denies any nausea, vomiting. OB - PN: Obj Data Labs CBC & Chem 7: 05/30/19 10:20 05/30/19 10:20 Labs: Laboratory Results - last 24 hr 05/30/19 05/30/19 05/30/19 09:11 10:19 10:20 WBC RBC Hgb Hct MCV MCH MCHC RDW Plt Count MPV Immature Gran % (Auto) Neut % (Auto) Lymph % (Auto) [place] % (Auto) Eos % (Auto) Baso % (Auto) Lymph # (Auto) [place] # (Auto) Eos # (Auto) Baso # (Auto) Abs Immat Gran (auto) Absolute Neuts (auto) Absolute Nucleated RBC Nucleated RBC % Creatinine 0.60 L Estim Creat Clear Calc 113 Estimated GFR > 60 Urine Color Straw Urine Appearance Clear Urine pH 7.0 Ur Specific [place] 1.008 Urine Protein Negative Urine Glucose (UA) Negative Urine Ketones Negative Ur Blood (Man) Negative Urine Nitrate Negative Urine Bilirubin Negative Urine Urobilinogen Negative Leukocyte Esterase Rfl Negative Gentamicin Peak Gentamicin Trough 0.9 05/30/19 05/30/19 10:20 13:17 WBC 8.7 RBC 2.71 L Hgb 8.1 L Hct 25.8 L MCV 95.2 MCH 29.9 MCHC 31.4 L RDW 14.2 Plt Count 195 MPV 9.3 Immature Gran % (Auto) 4.2 H Neut % (Auto) 71.8 Lymph % (Auto) 14.0 L [place] % (Auto) 9.2 H Eos % (Auto) 0.5 Baso % (Auto) 0.3 Lymph # (Auto) 1.22 [place] # (Auto) 0.8 H Eos # (Auto) 0.0 Baso # (Auto) 0.0 Abs Immat Gran (auto) 0.37 H Absolute Neuts (auto) 6.3 Absolute Nucleated RBC 0.0 Nucleated RBC % 0.0 Creatinine Estim Creat Clear Calc Estimated GFR Urine Color Urine Appearance Urine pH Ur Specific [place] Urine Protein Urine Glucose (UA) Urine Ketones Ur Blood (Man) Urine Nitrate Urine Bilirubin Urine Urobilinogen Leukocyte Esterase Rfl Gentamicin Peak 2.7 L Gentamicin Trough OB - PN A/P Assessment and Plan (1) Endometritis: Code(s): N71.9 - Inflammatory disease of uterus, unspecified Status: Acute (2) Factor 5 Leiden mutation, heterozygous: Code(s): D68.51 - Activated protein C resistance Status: Acute (3) hemorrhage, delivered: Code(s): O72.1 - Other immediate hemorrhage Status: Acute (4) Gestational hypertension: Code(s): O13.9 - Gestational [-induced] hypertension without significant proteinuria, unspecified trimester Status: Acute Assessment and Plan: Patient is a 43-year-old female with endometritis. She is day 4 from a vaginal . She had a successful . She has restarted her Lovenox for factor 5 Leiden heterozygosity. She has been getting IV antibiotics for the endometritis and she has not had a fever for 22 hours approximately. Said some very elevated body temperatures recently. We are going to continue IV antibiotics through until around 7:30 a.m. and consider our plan at that time. Time Spent With Patient Time: Total time spent is greater than 50% in coordination of care (as documented) at patient's floor/unit and/or counseling patient: Exam Const: General: comfortable, no acute distress and alert Resp: Effort & Inspection: normal respiratory effort Auscultation: no crackles, no rales and no rhonchi Cardio: Rate: regular rate Heart sounds: no click, no murmurs and no rubs GI: Inspection: non-distended GI Palp: No Tenderness to palpation present (GI) Auscultation: normal bowel sounds Extrem: General: normal to inspection, no pedal edema and no calf tenderness
[2019-05-31] VITALS (9 sets, daily range): BP systolic 118–150; BP diastolic 83–87; PULSE 63–78; TEMP 36.2–36.8; O2SAT 97–100
[2019-05-31] MEDS: AMPICILLIN 2 GM/NS 100 ML 2 GM/100 ML BAG IVPB ×2 (00:03→06:13)
[2019-05-31] MEDS: metroNIDAZOLE 500 MG/ISO 100ML 500 MG/100 ML BAG 100 MG IVPB (08:48)
--- NOTE | 2019-05-31 09:44 | PM.OBPNVD ---
OB - PN: Subj Subjective Date/time seen: 05/31/19 09:44 Interval history: Patient is feeling much better, she denies feeling fever for the past 24 hours. She denies any nausea, vomiting, chills. She denies any chest pain or shortness of breath. She has minimal vaginal bleeding. Patient comments: no complaints and pain well controlled OB - PN: Obj Data Labs CBC & Chem 7: 05/30/19 10:20 05/30/19 10:20 Labs: Laboratory Results - last 24 hr 05/30/19 05/30/19 05/30/19 10:19 10:20 10:20 WBC 8.7 RBC 2.71 L Hgb 8.1 L Hct 25.8 L MCV 95.2 MCH 29.9 MCHC 31.4 L RDW 14.2 Plt Count 195 MPV 9.3 Immature Gran % (Auto) 4.2 H Neut % (Auto) 71.8 Lymph % (Auto) 14.0 L [place] % (Auto) 9.2 H Eos % (Auto) 0.5 Baso % (Auto) 0.3 Lymph # (Auto) 1.22 [place] # (Auto) 0.8 H Eos # (Auto) 0.0 Baso # (Auto) 0.0 Abs Immat Gran (auto) 0.37 H Absolute Neuts (auto) 6.3 Absolute Nucleated RBC 0.0 Nucleated RBC % 0.0 Creatinine 0.60 L Estim Creat Clear Calc 113 Estimated GFR > 60 Gentamicin Peak Gentamicin Trough 0.9 05/30/19 13:17 WBC RBC Hgb Hct MCV MCH MCHC RDW Plt Count MPV Immature Gran % (Auto) Neut % (Auto) Lymph % (Auto) [place] % (Auto) Eos % (Auto) Baso % (Auto) Lymph # (Auto) [place] # (Auto) Eos # (Auto) Baso # (Auto) Abs Immat Gran (auto) Absolute Neuts (auto) Absolute Nucleated RBC Nucleated RBC % Creatinine Estim Creat Clear Calc Estimated GFR Gentamicin Peak 2.7 L Gentamicin Trough OB - PN A/P Assessment and Plan (1) Endometritis: Code(s): N71.9 - Inflammatory disease of uterus, unspecified Status: Acute (2) History of pre-eclampsia: Code(s): Z87.59 - Personal history of other complications of , childbirth and the puerperium Status: Acute (3) hemorrhage, delivered: Code(s): O72.1 - Other immediate hemorrhage Status: Acute (4) Factor 5 Leiden mutation, heterozygous: Code(s): D68.51 - Activated protein C resistance Status: Acute Plan Comments: Patient is a 43-year-old female who is day 5. She had endometritis. She has been treated with IV antibiotics. She has been essentially afebrile for over 24 hours. We have agreed to discharge her with oral antibiotics. Her bleeding is minimal. She did have hemorrhage. She did have some manual exploration. She will follow up in 2 days. Time Spent With Patient Time: Total time spent is greater than 50% in coordination of care (as documented) at patient's floor/unit and/or counseling patient: Exam Const: General: comfortable, no acute distress and alert Resp: Effort & Inspection: normal respiratory effort Auscultation: no crackles, no rales and no rhonchi Cardio: Rate: regular rate Heart sounds: no click, no murmurs and no rubs GI: Inspection: non-distended GI Palp: No Tenderness to palpation present (GI) Auscultation: normal bowel sounds Other: Incision - CDI Extrem: General: normal to inspection, no pedal edema and no calf tenderness
--- NOTE | 2019-05-31 09:47 | PM.OBDSVD ---
DS: Diagnosis Admitting Diagnosis Admitting Diagnosis: Inflammatory disease of uterus, unspecified Discharge Diagnosis (1) Endometritis: Code(s): N71.9 - Inflammatory disease of uterus, unspecified Status: Acute OB - DS: Summary OB Procedures : NST and Ultrasound OB Procedures Intrapartum: Uterine exploration and Other ( hemorrhage) OB Procedures: : Other (IV antibiotics) Peripartum Data complications: pelvic infection Status at Discharge Functional status at discharge: independent ambulation Time Spent with Patient Time attestation: Total time spent providing and/or coordinating discharge services: Time spent: Less than 30 minutes DS: Data Data Completed and Pending Labs on day of discharge: Labs from last 24 hours 05/30/19 05/30/19 05/30/19 13:17 10:20 10:20 WBC 8.7 RBC 2.71 L Hgb 8.1 L Hct 25.8 L MCV 95.2 MCH 29.9 MCHC 31.4 L RDW 14.2 Plt Count 195 MPV 9.3 Immature Gran % (Auto) 4.2 H Neut % (Auto) 71.8 Lymph % (Auto) 14.0 L [place] % (Auto) 9.2 H Eos % (Auto) 0.5 Baso % (Auto) 0.3 Lymph # (Auto) 1.22 [place] # (Auto) 0.8 H Eos # (Auto) 0.0 Baso # (Auto) 0.0 Abs Immat Gran (auto) 0.37 H Absolute Neuts (auto) 6.3 Absolute Nucleated RBC 0.0 Nucleated RBC % 0.0 Creatinine 0.60 L Estim Creat Clear Calc 113 Estimated GFR > 60 Gentamicin Peak 2.7 L Gentamicin Trough 05/30/19 10:19 WBC RBC Hgb Hct MCV MCH MCHC RDW Plt Count MPV Immature Gran % (Auto) Neut % (Auto) Lymph % (Auto) [place] % (Auto) Eos % (Auto) Baso % (Auto) Lymph # (Auto) [place] # (Auto) Eos # (Auto) Baso # (Auto) Abs Immat Gran (auto) Absolute Neuts (auto) Absolute Nucleated RBC Nucleated RBC % Creatinine Estim Creat Clear Calc Estimated GFR Gentamicin Peak Gentamicin Trough 0.9 Discharge Plan Discharge Discharging Clinician: Raffy Molina Patient Disposition: Home, Self-Care Activity: pelvic rest Diet: regular Patient Instructions: Antibiotic Form Stand Alone Forms: General Discharge Information Follow-up/Referrals: Raffy Molina MD [Physician] - Discharge Medications: New metronidazole 500 mg tablet 500 mg PO Q12H Qty: 14 RF: 0 cefdinir 300 mg capsule 300 mg PO Q12H Qty: 14 RF: 0 Continued albuterol sulfate 90 mcg/actuation Hfa Aerosol Inhaler 1 inh INHALATION QID PRN (Reason: Shortness Of Breath) RF: 0 PNV [id number] [] 28 mg iron- 800 mcg Tablet 1 tablet PO DAILY RF: 0 ibuprofen 600 mg Tablet 600 mg PO Q6H PRN (Reason: Cramping) Qty: 60 RF: 0 Date of admission: 05/29/19 09:41 Primary Care Provider: UNKNOWN,DOCTOR Admitting Provider: Raffy Molina Attending physician on admission: Raffy Molina
--- NOTE | 2019-05-31 10:14 | WPDHPUPDATE1 ---
History and Physical Update Update Date/Time: 05/31/19 10:14 History and Physical has been reviewed, including an updated exam of the patient. There are NO changes in the patient's condition. Risks, benefits, and alternatives have been discussed and questions answered. Patient agrees to proceed with procedure.
[2019-05-31] MEDS: MULTIVIT/MIN/PREN/FOL AC/IRON TABLET 1 TAB PO (11:13)
== END 2019-05-31 11:30 | disposition home or self-care (01) ==
PROVIDERS: Admitting Provider Obstetrics & Gynecology; Visit Provider Obstetrics & Gynecology
DX: O86.12 Endometritis following delivery (principal); O72.1 Other immediate postpartum hemorrhage; O99.13 Other diseases of the blood and blood-forming organs and certain disorders involving the immune mechanism complicating the puerperium; D68.51 Activated protein C resistance; Z87.59 Personal history of other complications of pregnancy, childbirth and the puerperium
CPT/HCPCS: 36415; 76856; 80170; 81003; 82565; 85025; 96361; 96365; 96366; 96367; 96368; 96376; A9270; G0378; G0379; J0131; J0290; J1580; J1650; J7120

== ENCOUNTER 2019-08-15 09:55 | Outpatient (CLI) | payer BC, SELFPAY ==
[2019-08-15 10:08] LABS: Basophils Percent Auto 0.4 % (0.2-1.2); Eosinophils Absolute Auto 0.1 K/mm3 (0-0.3); Eosinophils Percent Auto 1.2 % (0-4.4); Hematocrit 40.3 % (37.0-47.0); Immature Granulocyte Absolute 0.01 K/mm3 (0.00-0.031); Immature Granulocyte Percent A 0.1 % (0-0.5); Lymphocytes Absolute Auto 2.44 K/mm3 (0.9-3.2); Lymphocytes Percent Auto 35.7 % (18.3-44.2); Mean Corpuscular HGB Conc 32.3 g/dl (32-36); Mean Corpuscular Hemoglobin 27.9 pg (26-34); Mean Corpuscular Volume 86.5 fl (80-100); Mean Platelet Volume 8.9 fl (7.4-10.4); Monocytes Absolute Auto 0.5 K/mm3 (0.1-0.6); Monocytes Percent Auto 7.6 % (2.6-8.5); Neutrophils Absolute Auto 3.8 K/mm3 (1.3-6.7); Platelet Count Result 290 k/mm3 (150-375); Red Blood Count 4.66 M/mm3 (4.2-5.4); Red Cell Distribution Width 12.9 % (11.5-14.5); White Blood Count 6.8 K/mm3 (4.5-10.0)
[2019-08-15 10:12] LABS: Blood Urea Nitrogen 12 mg/dL (8-26); Carbon Dioxide 27 mmol/L (22-30); Chloride 104 mmol/L (98-109); Estimated Glomerular Filt Rate > 60; Glucose 93 mg/dL (70-105); Potassium 4.6 mmol/L (3.5-4.9); Sodium 140 mmol/L (138-146)
[2019-08-15 11:17] LABS: Iron 126 ug/dL (37-170)
[2019-08-15 11:20] LABS: Alanine Aminotransferase 61 U/L (4-35); Albumin Level 4.5 g/dL (3.5-5.1); Alkaline Phosphatase 56 U/L (38-126); Aspartate Amino Transferase 49 U/L (14-36); Bilirubin,Total 0.4 mg/dL (0.2-1.3); Blood Urea Nitrogen 12 mg/dL (7-17); Calcium 9.6 mg/dL (8.4-10.2); Carbon Dioxide 28 mmol/L (22-30); Chloride 104 mmol/L (98-107); Estimated Glomerular Filt Rate > 60; Glucose 92 mg/dL (65-105); Potassium 4.9 mmol/L (3.4-5.0); Sodium 140 mmol/L (137-145)
[2019-08-15 11:26] LABS: Percent Iron Saturation 41 % (20-50)
== END 2019-08-15 09:56 | disposition home or self-care (01) ==
LOC: ANHLAB 09:57
PROVIDERS: Visit Provider Internal Medicine Hematology & Oncology
DX: D50.9 Iron deficiency anemia, unspecified (principal)
CPT/HCPCS: 36415; 80048; 80053; 82728; 83540; 83550; 85025